=== PATIENT | female | born 1980 | race Caucasian/White ===

== ENCOUNTER → 2018-06-10 | Outpatient (CLI) | payer OTHER | END | disposition home or self-care (01) | LOC: MI 15:30 | PROC: B030YZZ Magnetic Resonance Imaging (MRI) of Brain using Other Contrast (ICD-10-PCS; principal; 2018-06-10) | DX: R20.0 Anesthesia of skin (principal); R51 Headache | CPT/HCPCS: A9577; A9579 ==